=== PATIENT | female | born 1975 | race Caucasian/White ===

== ENCOUNTER 2016-09-02 18:28 | Emergency (ER) ==
[2016-09-02 18:47] VITALS: BP 141/96
[2016-09-02] MEDS ORDERED: COMPAZINE IV ONE (20:42)
[2016-09-02] MEDS ORDERED: BENADRYL IV ONE (20:43)
--- NOTE | 2016-09-02 20:48 | PROVIDER DOCUMENTATION ---
HPI-Headache - General Chief Complaint: Headache Stated Complaint: MIGRAINE Time Seen by Provider: 09/02/16 20:33 Source: patient Home Medications: Losartan [Cozaar] 50 mg PO DAILY 09/02/16 - History of Present Illness-Headache Nature of Presenting Problem: 40 y/o WF c/o band-like AGUILAR x 1 day. States hx of migraine AGUILAR, but has not had to have medications in several years. Reports nausea. Denies any vomiting, fever/chills, illness. States she has been stressed out more than usual. Reports 04/05. Denies any medication use at home. Review of Systems - Adult - REVIEW OF SYSTEMS - ADULT Constitutional: reports: no symptoms reported. denies: chills, fever Eyes: reports: no symptoms reported. denies: blurred vision, double vision Ears, Nose, Mouth & Throat: reports: no symptoms reported. denies: ear pain, nose pain Cardiovascular: reports: no symptoms reported. denies: chest pain, palpitations Respiratory: reports: no symptoms reported. denies: dyspnea on exertion, shortness of breath Gastrointestinal: reports: see HPI, nausea. denies: abdominal pain, diarrhea, vomiting Genitourinary: reports: no symptoms reported. denies: dysuria, frequency Musculoskeletal: reports: no symptoms reported. denies: joint pain, joint swelling Integumentary: reports: no symptoms reported. denies: nail changes, rash Neurological: reports: see HPI, headache/migraines. denies: numbness, paresthesia Psychiatric: reports: no symptoms reported Endocrine: reports: no symptoms reported. denies: cold intolerance, heat intolerance Hematologic/Lymphatic: reports: no symptoms reported. denies: easy bruising, prolonged bleeding Allergic/Immunologic: reports: no symptoms reported All Other Systems: Reviewed and Negative Past History - Adult - PAST MEDICAL HISTORY-ADULT Review of Records: reports: Nursing Assessment Review, Medications Reviewed Physical Exam- Neurological - Physical Exam-Neuro Initial Vital Signs Reviewed: Yes General Appearance: alert, mild distress HENMT: normocephalic/atraumatic, moist mucous membranes. negative: hearing deficit Head Injury: no evidence of injury Neck: supple, normal inspection. negative: Brudzinski's sign Respiratory: lungs clear, normal breath sounds. negative: crackles, rales, rhonchi, stridor, wheezing Cardiovascular: regular rate, rhythm. negative: bradycardia, tachycardia Abdominal Exam: normal bowel sounds, non tender, soft. negative: distended, guarding, rigid Extremity: normal gait bobbin handler Exam: normal hearing, normal speech, PERRL. negative: abnormal eye position , abnormal pupil position, abnormal speech, facial asymmetry, facial droop, facial paresthesias, facial weakness, gaze palsy, hearing deficit (R), hearing deficit (L), tongue deviation to R, tongue deviation to L Coordination/Gait: normal gait Motor/Sensory: no motor deficit, no sensory deficit. negative: sensory deficit , weak motor strength RUE, weak motor strength LUE, weak motor strength RLE, weak motor strength LLE Neurologic: bobbin handler II-XII nml as tested. negative: aphasia, EOM palsy, facial droop, focal weakness, motor weakness, sensory deficit Integumentary: normal color, normal turgor, warm/dry Psych/Mental Status: AL, normal mood/affect, normal thought content, normal thought process, oriented x 3 Departure - Departure Time of Disposition Order: 20:47 DIAGNOSIS: Headache Qualifiers: Headache type: other vascular headache Qualified Code(s): G44.1 - Vascular headache, not elsewhere classified Disposition: HOME 01 Certified Medical Emergency: Emergent Condition: Stable Additional Instructions: Follow up with PCP or specialist for further management of headaches. Take medications as directed. ED Follow Up Instructions: You have been treated by a care provider in the Emergency Department. These instructions are being provided to you so you can have an understanding of how to care for yourself upon discharge. Upon discharge from the Emergency Department, you are responsible for making arrangements for follow-up care by a physician of your choice. Take all prescribed medications as directed. Return to the Emergency Department immediately for any new or worsening symptoms. You may call the Physician Referral phone number at [phone] to obtain a list of Physicians who are taking new patients. Prescriptions: Butalbital/APAP/Caffeine [Fioricet] 1 each PO Q4H PRN PRN #7 tablet PRN Reason: Headache Promethazine [Phenergan] 25 mg PO Q6H PRN PRN #20 tablet PRN Reason: Nausea Referrals: None,PCP [Primary Care Provider] - Gregory Monaco III, MD [STAFF PHYSICIAN] - Instructions: Migraine Headache, [id number] Attestation - Physician/ Mid-level Attestation Patient care was provided by Mid-level provider (PUPIL PERSONNEL WORKER/PA):: Yes Mid-level provider:: Freda Cantor Mid-level documentation review:: The Mid-level provider documentation, treatment plan and medical decision making was reviewed by the physician who agrees with all treatment and medical decision making by the MLP.
[2016-09-02] MEDS ORDERED: BENADRYL IM ONE (20:50)
[2016-09-02] MEDS ORDERED: COMPAZINE PR ONE (20:50)
[2016-09-02] MEDS ORDERED: COMPAZINE IM ONE (21:00)
== END 2016-09-02 21:40 | disposition home or self-care (01) ==
LOC: ED 18:28
DX: G44.1 Vascular headache, not elsewhere classified (principal); R11.0 Nausea; Z79.899 Other long term (current) drug therapy
CPT/HCPCS: 96372; J0780; J1200